=== PATIENT | male | born 1985 | race African-American/Black ===

== ENCOUNTER 2020-07-30 18:44 | Emergency (ER) | payer OTHER ==
[~2020-07-30] VITALS: Ht 180.3 cm; Wt 77.1 kg
[2020-07-30 19:05] VITALS: BP 112/73
[2020-07-30] MEDS ORDERED: ADDAPRIN200 MG PO (19:10)
[2020-07-30 19:46] LABS: AMP/METHAMP Negative (Negative); BARBITURATES Negative (Negative); BENZODIAZEPINES Negative (Negative); COCAINE Negative (Negative); METHADONE Negative (Negative); OPIATES Negative (Negative); PCP POSITIVE (Negative)
== END 2020-07-30 22:35 | disposition home or self-care (01) ==
LOC: ER 18:44
PROVIDERS: Physician Assistant
DX: R51.9 Headache, unspecified (principal); R05 Cough; M25.571 Pain in right ankle and joints of right foot; Z79.1 Long term (current) use of non-steroidal anti-inflammatories (NSAID); Z59.0 Homelessness